=== PATIENT | male | born 1945 | race Caucasian/White ===

== ENCOUNTER 2018-05-13 12:15 | Inpatient (IN) | payer BC, OTHER ==
[~2018-05-13] VITALS: Ht 185.4 cm; Wt 104.3 kg
[2018-05-13] MEDS ORDERED: ONDANSETRON HCL 4MG/2ML INJ IV STA (13:05)
[2018-05-13] MEDS ORDERED: KETOROLAC 30MG/ML VIAL IV STA (13:05)
[2018-05-13] MEDS ORDERED: MORPHINE SULFATE 4 MG/ML CPJ (NOT FOR IM USE) IV STA (13:05)
[2018-05-13] MEDS ORDERED: SODIUM CHLORIDE 0.9% 1,000 ML IV ONE (13:05)
[2018-05-13] MEDS ORDERED: PIPERACILLIN/TAZ 3.375G PREMIX 50 ML IV ONE (13:15)
[2018-05-13] MEDS ORDERED: VANCOMYCIN 1 G PREMIX 200 ML IV ONE (13:15)
[2018-05-13 13:48] LABS: HEMATOCRIT. 49.1 % (42.0-52.0); HEMOGLOBIN. 16.6 g/dL (14.0-18.0); MEAN CORPUSCULAR HEMOGLOBIN 31.6 pg (28.0-32.0); MEAN CORPUSCULAR VOLUME 93.3 fL (80.0-94.0); MEAN PLATELET VOLUME 8.7 fl (7.4-10.4); PLATELET 324 x1000/uL (130-400); RED BLOOD CELL COUNT 5.26 mill/uL (4.7-6.1); RED CELL DISTRIBUTION WIDTH 13.4 % (11.6-14.6)
[2018-05-13 13:56] LABS: CHLORIDE 95 mEq/L (98-107)
[2018-05-13 13:58] LABS: INR 1.1; PROTHROMBIN TIME 10.6 sec (9.1-11.1)
[2018-05-13 14:03] LABS: BETA HYDROXYBUTYRATE 3.6 mMol/L (0.0-0.3)
[2018-05-13 14:17] LABS: CLARITY URINE CLEAR (CLEAR); COLOR URINE YELLOW (YELLOW); KETONES URINE 3+ (NEGATIVE); LEUKOCYTE ESTERASE URINE NEGATIVE (NEGATIVE); NITRITE URINE NEGATIVE (NEGATIVE); OCCULT BLOOD URINE NEGATIVE (NEGATIVE); PROTEIN URINE NEGATIVE (NEGATIVE); SPECIFIC GRAVITY URINE 1.042 (1.005-1.030); UROBILINOGEN URINE 0.2 E.U./dL (0.2-1.0)
[2018-05-13 14:17] LABS: PLATELET ESTIMATE NORMAL
[2018-05-13 22:00] VITALS: BP 135/65
[2018-05-14] VITALS: BP 129/70
[2018-05-14] MEDS ORDERED: DEXTROSE 50% WATER 50ML SYRINGE IV PRN (00:30)
[2018-05-14] MEDS ORDERED: PIPERACILLIN/TAZ 3.375G PREMIX 50 ML IV SCH (00:30)
[2018-05-14] MEDS: PIPERACILLIN/TAZ 3.375G PREMIX 50 ML IV SCH ×4 (02:40→21:00)
[2018-05-14] MEDS: VANCOMYCIN 1 G PREMIX 200 ML IV SCH ×2 (02:40→15:32)
[2018-05-14] MEDS ORDERED: INSULIN GLARGINE UD 100 UNITS/ML SYR SUBCUT SCH ×2 (03:00→22:00)
[2018-05-14 04:00] VITALS: BP 133/83
[2018-05-14 07:02] LABS: HEMATOCRIT. 42.3 % (42.0-52.0); HEMOGLOBIN. 14.6 g/dL (14.0-18.0); MEAN CORPUSCULAR VOLUME 92.7 fL (80.0-94.0); MEAN PLATELET VOLUME 8.1 fl (7.4-10.4); PLATELET 248 x1000/uL (130-400); RED BLOOD CELL COUNT 4.56 mill/uL (4.7-6.1); RED CELL DISTRIBUTION WIDTH 13.5 % (11.6-14.6)
[2018-05-14 07:19] LABS: CHLORIDE 98 mEq/L (98-107)
[2018-05-14] MEDS: BLOOD SUGAR DIAGNOSTIC STRIP TEST SCH ×4 (07:32→21:36)
[2018-05-14] MEDS ORDERED: METF-416 PO (07:34)
[2018-05-14] MEDS ORDERED: TAMS0.4C31 PO (07:34)
[2018-05-14] MEDS ORDERED: LEVO75TA7 PO (07:34)
[2018-05-14 07:41] LABS: HDL CHOLESTEROL 39 mg/dL (40-59); LDL CHOLESTEROL 92 mg/dL (5-100)
[2018-05-14] MEDS ORDERED: INSULIN LISPRO 100 UNITS/ML SUBCUT SCH (07:50)
[2018-05-14 08:00] VITALS: BP 136/78
[2018-05-14] MEDS: METFORMIN HCL 500MG TABLET PO SCH ×2 (08:07→17:38)
[2018-05-14] MEDS ORDERED: ACETAMINOPHEN 325MG TABLET PO PRN (08:30)
[2018-05-14] MEDS ORDERED: LACTULOSE 20G/30ML UDC PO PRN (08:30)
[2018-05-14] MEDS ORDERED: TAMSULOSIN HCL 0.4MG SR CAPSULE PO SCH (09:00)
[2018-05-14] MEDS: DOCUSATE SODIUM 250MG CAPSULE PO SCH (09:39)
[2018-05-14] MEDS: BENAZEPRIL 10MG TABLET PO SCH (09:40)
[2018-05-14 12:00] VITALS: BP 105/58
[2018-05-14] MEDS: INSULIN GLARGINE UD 100 UNITS/ML SYR SUBCUT SCH ×2 (13:03→22:03)
[2018-05-14] MEDS: INSULIN LISPRO 100 UNITS/ML SUBCUT SCH ×3 (13:05→22:01)
[2018-05-14] MEDS: LINAGLIPTIN 5MG TABLET PO SCH (13:08)
[2018-05-14 15:23] LABS: ATYPICAL LYMPHOCYTES 1; PLATELET ESTIMATE NORMAL
[2018-05-14 16:00] VITALS: BP 77/49
[2018-05-14] MEDS ORDERED: LACTULOSE 20G/30ML UDC PO NR (19:15)
[2018-05-14 20:00] VITALS: BP 126/66
[2018-05-14] MEDS: HYDROCODONE/ACETAMINOPHEN 5/325MG TABLET PO PRN (20:01)
[2018-05-15] VITALS: BP 97/61
[2018-05-15] MEDS: VANCOMYCIN 1 G PREMIX 200 ML IV SCH (02:52)
[2018-05-15] MEDS ORDERED: NA PHOS,M-B/NA PHOS,DI-BA ENEMA 118ML PR NR (03:15)
[2018-05-15] MEDS: HYDROCODONE/ACETAMINOPHEN 5/325MG TABLET PO PRN ×2 (03:39→10:38)
[2018-05-15 04:00] VITALS: BP 133/75
[2018-05-15] MEDS: PIPERACILLIN/TAZ 3.375G PREMIX 50 ML IV SCH ×4 (05:02→20:39)
[2018-05-15] MEDS ORDERED: LACTULOSE 20G/30ML UDC PO PRN (05:30)
[2018-05-15] MEDS: BLOOD SUGAR DIAGNOSTIC STRIP TEST SCH ×4 (06:35→20:39)
[2018-05-15 08:00] VITALS: BP 122/71
[2018-05-15] MEDS: LACTULOSE 20G/30ML UDC PO SCH ×2 (09:16→17:24)
[2018-05-15] MEDS: DOCUSATE SODIUM 250MG CAPSULE PO SCH (09:16)
[2018-05-15] MEDS: LINAGLIPTIN 5MG TABLET PO SCH (09:16)
[2018-05-15] MEDS: TAMSULOSIN HCL 0.4MG SR CAPSULE PO SCH ×2 (09:16→17:24)
[2018-05-15] MEDS: BENAZEPRIL 10MG TABLET PO SCH (09:17)
[2018-05-15] MEDS: INSULIN LISPRO 100 UNITS/ML SUBCUT SCH ×5 (09:25→20:52)
[2018-05-15] MEDS: METFORMIN HCL 500MG TABLET PO SCH (10:38)
[2018-05-15] MEDS: INSULIN GLARGINE UD 100 UNITS/ML SYR SUBCUT SCH ×2 (10:42→22:34)
[2018-05-15 12:00] VITALS: BP 99/69
[2018-05-15] MEDS: MORPHINE SULFATE 4 MG/ML CPJ (NOT FOR IM USE) IV PRN ×2 (12:27→20:38)
[2018-05-15 16:00] VITALS: BP 106/57
[2018-05-15] MEDS ORDERED: SORBITOL 70% SOLN 30ML PO NR (16:45)
[2018-05-15 20:00] VITALS: BP 113/70
[2018-05-16] VITALS: BP 131/78
[2018-05-16] MEDS: VANCOMYCIN 1 G PREMIX 200 ML IV SCH ×2 (02:12→14:38)
[2018-05-16 04:00] VITALS: BP 128/64
[2018-05-16] MEDS: PIPERACILLIN/TAZ 3.375G PREMIX 50 ML IV SCH ×3 (04:00→15:00)
[2018-05-16] MEDS: BLOOD SUGAR DIAGNOSTIC STRIP TEST SCH ×3 (06:58→17:20)
[2018-05-16] MEDS: METFORMIN HCL 500MG TABLET PO SCH ×3 (07:50→17:27)
[2018-05-16 08:00] VITALS: BP 126/75
[2018-05-16] MEDS: DOCUSATE SODIUM 250MG CAPSULE PO SCH (08:30)
[2018-05-16] MEDS: LINAGLIPTIN 5MG TABLET PO SCH (08:30)
[2018-05-16] MEDS: TAMSULOSIN HCL 0.4MG SR CAPSULE PO SCH ×2 (08:31→17:00)
[2018-05-16] MEDS: LACTULOSE 20G/30ML UDC PO SCH ×2 (08:31→17:00)
[2018-05-16] MEDS: INSULIN LISPRO 100 UNITS/ML SUBCUT SCH ×6 (08:38→17:27)
[2018-05-16] MEDS: INSULIN GLARGINE UD 100 UNITS/ML SYR SUBCUT SCH (10:02)
[2018-05-16 10:59] VITALS: BP 126/75
[2018-05-16 12:00] VITALS: BP 96/60
[2018-05-16 16:00] VITALS: BP 103/65
== END 2018-05-16 17:32 | disposition home or self-care (01) | DRG 872 ==
LOC: ER 14:56 → 6EST 18:04 → ENRESERV 19:56 → 6EST 23:22
PROVIDERS: ADMIT Internal Medicine; ATTEND Internal Medicine
DX: A41.9 Sepsis, unspecified organism (principal); L03.116 Cellulitis of left lower limb; E87.1 Hypo-osmolality and hyponatremia; E87.8 Other disorders of electrolyte and fluid balance, not elsewhere classified; E66.9 Obesity, unspecified; E11.65 Type 2 diabetes mellitus with hyperglycemia; E11.40 Type 2 diabetes mellitus with diabetic neuropathy, unspecified; M77.32 Calcaneal spur, left foot; N40.0 Benign prostatic hyperplasia without lower urinary tract symptoms; K59.00 Constipation, unspecified; M25.475 Effusion, left foot; M10.072 Idiopathic gout, left ankle and foot; Z68.30 Body mass index [BMI] 30.0-30.9, adult
CPT/HCPCS: 36415; 71045; 73630; 73721; 74018; 80061; 80202; 82010; 82962; 83036; 83605; 84145; 84484; 84550; 93005; 96365; 96375; 97162; 99285; J1815; J1885; J2270; J2405; J2543; J3370; J7030; J7040

== ENCOUNTER 2018-11-21 13:06 | Inpatient (IN) | payer BC, MEDICARE, OTHER ==
[~2018-11-21] VITALS: Ht 188 cm; Wt 108.9 kg
[~2018-11-21 13:06] MED LIST: LEVO75TA7 PO; METF-416 PO; TAMS0.4C31 PO
[2018-11-21] MEDS ORDERED: ONDANSETRON HCL 4MG/2ML INJ IV STA (13:50)
[2018-11-21 14:23] LABS: EOSINOPHILS % 2.4 % (0.0-5.0); HEMATOCRIT. 41.3 % (42.0-52.0); HEMOGLOBIN. 14.2 g/dL (14.0-18.0); LYMPHOCYTES % 21.9 % (20.0-50.0); MEAN CORPUSCULAR HEMOGLOBIN 30.6 pg (28.0-32.0); MEAN CORPUSCULAR VOLUME 88.8 fL (80.0-94.0); MEAN PLATELET VOLUME 7.5 fl (7.4-10.4); MONOCYTES % 10.7 % (2.0-8.0); PLATELET 264 x1000/uL (130-400); RED BLOOD CELL COUNT 4.65 mill/uL (4.7-6.1); RED CELL DISTRIBUTION WIDTH 13.8 % (11.6-14.6)
[2018-11-21 14:30] LABS: CHLORIDE 104 mEq/L (98-107)
[2018-11-21 14:31] LABS: PROTHROMBIN TIME 10.7 sec (9.6-11.0)
[2018-11-21] MEDS ORDERED: MORPHINE SULFATE 4 MG/ML CPJ (NOT FOR IM USE) IV ONE ×2 (15:00→17:45)
[2018-11-21] MEDS ORDERED: SODIUM CHLORIDE 0.9% 1,000 ML IV ONE (15:45)
[2018-11-21] MEDS ORDERED: PIPERACILLIN/TAZ 3.375G PREMIX 50 ML IV SCH (19:00)
[2018-11-21] MEDS ORDERED: ONDANSETRON HCL 4MG/2ML INJ IV PRN (19:00)
[2018-11-21] MEDS ORDERED: CLONIDINE 0.1MG TABLET PO PRN (19:00)
[2018-11-21] MEDS ORDERED: MAGNESIUM/ALUMINUM HYDROXIDE/SIMETHICONE 30ML UDC PO PRN (19:00)
[2018-11-21] MEDS ORDERED: NA PHOS,M-B/NA PHOS,DI-BA ENEMA 118ML PR PRN (19:00)
[2018-11-21] MEDS ORDERED: DOCUSATE SODIUM 100MG CAPSULE PO PRN (19:00)
[2018-11-21] MEDS ORDERED: LORAZEPAM 0.5MG TABLET PO PRN (19:00)
[2018-11-21] MEDS ORDERED: DEXTROSE 50% WATER 50ML SYRINGE IV PRN (19:00)
[2018-11-21] MEDS ORDERED: IPRATROPIUM/ALBUTEROL 0.5-3(2.5)MG/3ML NEB INH PRN (19:00)
[2018-11-21] MEDS ORDERED: ZOLPIDEM TARTRATE 5MG TABLET PO PRN (19:00)
[2018-11-21] MEDS ORDERED: ACETAMINOPHEN 325MG TABLET PO PRN (19:00)
[2018-11-21] MEDS ORDERED: GUAIFENESIN 200MG/10ML SUGAR FREE UDC PO PRN (19:00)
[2018-11-21] MEDS ORDERED: TRAMADOL 50MG TABLET PO PRN (19:00)
[2018-11-21 19:39] LABS: T4 FREE 1.19 ng/dL (0.76-1.46)
[2018-11-21] MEDS: MORPHINE SULFATE 4 MG/ML CPJ (NOT FOR IM USE) IV PRN (21:07)
[2018-11-21 23:20] VITALS: BP 142/91
[2018-11-21] MEDS: DEXT 5%/0.45% NACL 1000ML 1,000 ML IV SCH (23:40)
[2018-11-21] MEDS: PIPERACILLIN/TAZ 3.375G PREMIX 50 ML IV SCH (23:40)
[2018-11-21] MEDS: BLOOD SUGAR DIAGNOSTIC STRIP TEST SCH (23:54)
[2018-11-21] MEDS: INSULIN LISPRO 100 UNITS/ML SUBCUT SCH (23:57)
[2018-11-22] MEDS: MORPHINE SULFATE 4 MG/ML CPJ (NOT FOR IM USE) IV PRN ×5 (01:03→21:48)
[2018-11-22 03:41] VITALS: BP 162/88
[2018-11-22] MEDS: LEVOTHYROXINE SODIUM 112MCG TABLET PO SCH (06:41)
[2018-11-22] MEDS: BLOOD SUGAR DIAGNOSTIC STRIP TEST SCH ×4 (07:25→21:47)
[2018-11-22] MEDS: INSULIN LISPRO 100 UNITS/ML SUBCUT SCH ×4 (07:38→21:44)
[2018-11-22] MEDS: TAMSULOSIN HCL 0.4MG SR CAPSULE PO SCH (09:05)
[2018-11-22] MEDS: LISINOPRIL 20MG TABLET PO SCH ×2 (09:06→21:47)
[2018-11-22] MEDS: METOPROLOL TARTRATE 25MG TABLET PO SCH ×2 (09:06→21:46)
[2018-11-22] MEDS: PANTOPRAZOLE SODIUM 40 MG/VIAL IV SCH (09:06)
[2018-11-22] MEDS: DEXT 5%/0.45% NACL 1000ML 1,000 ML IV SCH ×2 (09:07→21:48)
[2018-11-22] MEDS: PIPERACILLIN/TAZ 3.375G PREMIX 50 ML IV SCH ×3 (09:07→21:47)
[2018-11-22] MEDS: ENOXAPARIN 30MG/0.3ML SYR SUBCUT SCH ×2 (09:07→21:46)
[2018-11-22 11:53] VITALS: BP 120/62
[2018-11-22 16:00] VITALS: BP 123/66
[2018-11-22 20:00] VITALS: BP 138/74
[2018-11-23] VITALS: BP 116/61
[2018-11-23] MEDS: PIPERACILLIN/TAZ 3.375G PREMIX 50 ML IV SCH ×4 (02:33→21:01)
[2018-11-23] MEDS: MORPHINE SULFATE 4 MG/ML CPJ (NOT FOR IM USE) IV PRN ×3 (02:34→20:45)
[2018-11-23 04:00] VITALS: BP 132/69
[2018-11-23] MEDS: DEXT 5%/0.45% NACL 1000ML 1,000 ML IV SCH ×3 (05:30→21:01)
[2018-11-23] MEDS: LEVOTHYROXINE SODIUM 112MCG TABLET PO SCH (06:21)
[2018-11-23] MEDS: BLOOD SUGAR DIAGNOSTIC STRIP TEST SCH ×4 (06:32→21:27)
[2018-11-23] MEDS: INSULIN LISPRO 100 UNITS/ML SUBCUT SCH ×4 (06:33→20:57)
[2018-11-23 08:00] VITALS: BP 110/37
[2018-11-23] MEDS: LISINOPRIL 20MG TABLET PO SCH ×2 (08:14→20:46)
[2018-11-23] MEDS: TAMSULOSIN HCL 0.4MG SR CAPSULE PO SCH (08:14)
[2018-11-23] MEDS: PANTOPRAZOLE SODIUM 40 MG/VIAL IV SCH (08:15)
[2018-11-23] MEDS: METOPROLOL TARTRATE 25MG TABLET PO SCH ×2 (08:15→20:45)
[2018-11-23] MEDS: ENOXAPARIN 30MG/0.3ML SYR SUBCUT SCH ×2 (08:15→20:59)
[2018-11-23 16:00] VITALS: BP 123/69
[2018-11-23 20:00] VITALS: BP 123/66
[2018-11-24] VITALS: BP 138/70
[2018-11-24] MEDS: MORPHINE SULFATE 4 MG/ML CPJ (NOT FOR IM USE) IV PRN ×4 (00:08→22:22)
[2018-11-24] MEDS: PIPERACILLIN/TAZ 3.375G PREMIX 50 ML IV SCH ×4 (02:31→20:48)
[2018-11-24 04:00] VITALS: BP 124/69
[2018-11-24] MEDS: LEVOTHYROXINE SODIUM 112MCG TABLET PO SCH (06:31)
[2018-11-24] MEDS: BLOOD SUGAR DIAGNOSTIC STRIP TEST SCH ×4 (07:00→20:50)
[2018-11-24 07:49] VITALS: BP 155/81
[2018-11-24] MEDS: INSULIN LISPRO 100 UNITS/ML SUBCUT SCH ×4 (08:09→21:25)
[2018-11-24] MEDS: PANTOPRAZOLE SODIUM 40 MG/VIAL IV SCH (08:10)
[2018-11-24] MEDS: TAMSULOSIN HCL 0.4MG SR CAPSULE PO SCH (08:11)
[2018-11-24] MEDS: METOPROLOL TARTRATE 25MG TABLET PO SCH ×2 (08:11→20:49)
[2018-11-24] MEDS: LISINOPRIL 20MG TABLET PO SCH ×2 (08:11→20:49)
[2018-11-24] MEDS: ENOXAPARIN 30MG/0.3ML SYR SUBCUT SCH ×2 (08:12→20:50)
[2018-11-24] MEDS ORDERED: KETOROLAC 15MG/ML VIAL IV PRN (09:45)
[2018-11-24 10:40] LABS: BASOPHILS % 0.7 % (0.0-2.0); EOSINOPHILS % 3.3 % (0.0-5.0); HEMATOCRIT. 40.9 % (42.0-52.0); LYMPHOCYTES % 18.2 % (20.0-50.0); MEAN CORPUSCULAR HEMOGLOBIN 30.7 pg (28.0-32.0); MEAN CORPUSCULAR VOLUME 89.6 fL (80.0-94.0); MEAN PLATELET VOLUME 7.4 fl (7.4-10.4); MONOCYTES % 11.4 % (2.0-8.0); NEUTROPHILS % 66.4 % (40.0-76.0); PLATELET 267 x1000/uL (130-400); RED BLOOD CELL COUNT 4.57 mill/uL (4.7-6.1)
[2018-11-24 10:52] LABS: CHLORIDE 99 mEq/L (98-107)
[2018-11-24 12:00] VITALS: BP 161/81
[2018-11-24] MEDS: DEXT 5%/0.45% NACL 1000ML 1,000 ML IV SCH (12:00)
[2018-11-24 15:50] VITALS: BP 145/73
[2018-11-24 20:00] VITALS: BP 153/74
[2018-11-25] VITALS: BP 140/69
[2018-11-25] MEDS: PIPERACILLIN/TAZ 3.375G PREMIX 50 ML IV SCH ×4 (02:21→20:38)
[2018-11-25 04:00] VITALS: BP 130/72
[2018-11-25] MEDS: MORPHINE SULFATE 4 MG/ML CPJ (NOT FOR IM USE) IV PRN (04:50)
[2018-11-25] MEDS: DEXT 5%/0.45% NACL 1000ML 1,000 ML IV SCH (05:02)
[2018-11-25] MEDS: BLOOD SUGAR DIAGNOSTIC STRIP TEST SCH ×4 (06:37→21:00)
[2018-11-25] MEDS: LEVOTHYROXINE SODIUM 112MCG TABLET PO SCH (06:37)
[2018-11-25 08:00] VITALS: BP 156/87
[2018-11-25] MEDS: TAMSULOSIN HCL 0.4MG SR CAPSULE PO SCH (09:00)
[2018-11-25] MEDS: PANTOPRAZOLE SODIUM 40 MG/VIAL IV SCH (09:00)
[2018-11-25] MEDS: ENOXAPARIN 30MG/0.3ML SYR SUBCUT SCH ×2 (09:00→20:38)
[2018-11-25] MEDS: LISINOPRIL 20MG TABLET PO SCH ×2 (09:00→20:39)
[2018-11-25] MEDS: METOPROLOL TARTRATE 25MG TABLET PO SCH ×2 (09:00→20:39)
[2018-11-25] MEDS: INSULIN LISPRO 100 UNITS/ML SUBCUT SCH ×4 (09:13→22:08)
[2018-11-25] MEDS ORDERED: SKIN ADHESIVE 0.7 GM EA TOP ONE (09:16)
[2018-11-25] MEDS ORDERED: BUPIVACAINE HCL 0.5% (5MG/ML) 50ML ONE (09:16)
[2018-11-25] MEDS ORDERED: FENTANYL CITRATE/PF 50MCG/ML 2ML VIAL ONE (09:39)
[2018-11-25] MEDS ORDERED: MIDAZOLAM HCL 2 MG/2 ML VIAL ONE (09:39)
[2018-11-25] MEDS ORDERED: DEXAMETHASONE 4MG/ML 1ML VIAL ONE (09:40)
[2018-11-25] MEDS ORDERED: ONDANSETRON HCL 4MG/2ML INJ ONE ×2 (09:40→12:33)
[2018-11-25] MEDS ORDERED: EPHEDRINE SULFATE 50MG/ML VIAL ONE (09:40)
[2018-11-25] MEDS ORDERED: ROCURONIUM BROMIDE 10MG/ML VIAL 5ML IV ONE (09:40)
[2018-11-25] MEDS ORDERED: SUCCINYLCHOLINE CHLORIDE 200MG/10ML IV ONE (09:40)
[2018-11-25] MEDS ORDERED: PROPOFOL 200MG/20ML VIAL IV ONE (09:41)
[2018-11-25] MEDS ORDERED: MORPHINE SULFATE 4 MG/ML CPJ (NOT FOR IM USE) IV PRN (10:15)
[2018-11-25] MEDS ORDERED: ACETAMINOPHEN 325MG TABLET PO PRN (10:15)
[2018-11-25] MEDS ORDERED: HYDROCODONE/ACETAMINOPHEN 5/325MG TABLET PO PRN ×2 (10:15)
[2018-11-25] MEDS ORDERED: ONDANSETRON HCL 4MG/2ML INJ IV PRN (10:15)
[2018-11-25] MEDS ORDERED: PHENYLEPHRINE HCL 10 MG/ML 1ML (IV VIAL) IV ONE (10:45)
[2018-11-25] MEDS ORDERED: NEOSTIGMINE METHYLSULFATE 1MG/ML 10 ML VIAL ONE (11:31)
[2018-11-25] MEDS ORDERED: GLYCOPYRROLATE 0.2 MG/ML 2ML VIAL ONE (11:31)
[2018-11-25] MEDS: DEXT 5%/0.45% NACL KCL 20MEQ/L 1,000 ML IV SCH (12:00)
[2018-11-25] MEDS: HYDROMORPHONE HCL/PF 2MG/ML CPJ IV PRN ×4 (12:01→13:27)
[2018-11-25] MEDS: SODIUM CHLORIDE 0.9% INJ 3ML FLUSH IVF SCH ×2 (14:51→22:29)
[2018-11-25 16:00] VITALS: BP 140/81
[2018-11-25 20:00] VITALS: BP 143/82
[2018-11-25] MEDS ORDERED: DEXTROSE 50% WATER 50ML SYRINGE IV PRN (20:30)
[2018-11-25] MEDS ORDERED: INSULIN GLARGINE UD 100 UNITS/ML SYR SUBCUT SCH (22:00)
[2018-11-26] VITALS: BP 143/78
[2018-11-26] MEDS: PIPERACILLIN/TAZ 3.375G PREMIX 50 ML IV SCH ×2 (02:33→08:04)
[2018-11-26] MEDS: MORPHINE SULFATE 4 MG/ML CPJ (NOT FOR IM USE) IV PRN ×2 (02:48→08:05)
[2018-11-26] MEDS: DEXT 5%/0.45% NACL KCL 20MEQ/L 1,000 ML IV SCH (02:54)
[2018-11-26 04:00] VITALS: BP_SYST 139
[2018-11-26] MEDS: LEVOTHYROXINE SODIUM 112MCG TABLET PO SCH (06:21)
[2018-11-26] MEDS: SODIUM CHLORIDE 0.9% INJ 3ML FLUSH IVF SCH (06:21)
[2018-11-26] MEDS: BLOOD SUGAR DIAGNOSTIC STRIP TEST SCH ×4 (07:20→12:39)
[2018-11-26 08:00] VITALS: BP 155/83
[2018-11-26] MEDS: TAMSULOSIN HCL 0.4MG SR CAPSULE PO SCH (08:02)
[2018-11-26] MEDS: LISINOPRIL 20MG TABLET PO SCH (08:03)
[2018-11-26] MEDS: PANTOPRAZOLE SODIUM 40 MG/VIAL IV SCH (08:03)
[2018-11-26] MEDS: METOPROLOL TARTRATE 25MG TABLET PO SCH (08:04)
[2018-11-26] MEDS: ENOXAPARIN 30MG/0.3ML SYR SUBCUT SCH (08:04)
[2018-11-26] MEDS: INSULIN LISPRO 100 UNITS/ML SUBCUT SCH ×2 (08:21→12:08)
[2018-11-26 09:27] VITALS: BP 155/83
[2018-11-26 12:00] VITALS: BP 117/78
== END 2018-11-26 13:40 | disposition home or self-care (01) | DRG 418 ==
LOC: ER 13:06 → 6EST 18:21 → SUPCPDRO 18:54 → ENRESERV 21:27
PROVIDERS: ADMIT Internal Medicine; ATTEND Internal Medicine
PROC: 0FT44ZZ Resection of Gallbladder, Percutaneous Endoscopic Approach (ICD-10-PCS; principal; 2018-11-25)
DX: K80.00 Calculus of gallbladder with acute cholecystitis without obstruction (principal); E44.0 Moderate protein-calorie malnutrition; E11.65 Type 2 diabetes mellitus with hyperglycemia; E03.9 Hypothyroidism, unspecified; N40.0 Benign prostatic hyperplasia without lower urinary tract symptoms; K82.8 Other specified diseases of gallbladder; I10 Essential (primary) hypertension; Z79.899 Other long term (current) drug therapy; Z87.891 Personal history of nicotine dependence; Z79.84 Long term (current) use of oral hypoglycemic drugs; Z68.30 Body mass index [BMI] 30.0-30.9, adult
CPT/HCPCS: 36415; 76705; 78227; 80048; 80061; 80076; 82962; 83036; 83605; 84439; 84443; 84484; 88304; 93005; 93970; 96361; 96374; 96375; 96376; 99285; A9537; C1893; C9113; J0330; J1100; J1170; J1650; J1815; J2250; J2270; J2370; J2405; J2543; J2704; J2710; J3010; J3490; J7030